=== PATIENT | male | born 1960 | race Asian ===

== ENCOUNTER 2019-05-28 22:54 | Emergency (ER) | payer OTHER ==
[~2019-05-28] VITALS: Ht 170.2 cm; Wt 71.7 kg
[2019-05-28 23:20] VITALS: Ht 170.2 cm; Wt 71.7 kg
[2019-05-29 01:44] VITALS: BP 116/60
== END 2019-05-29 01:45 | disposition home or self-care (01) ==
LOC: ED 22:54
DX: S46.911A Strain of unspecified muscle, fascia and tendon at shoulder and upper arm level, right arm, initial encounter (principal); E11.9 Type 2 diabetes mellitus without complications; X58.XXXA Exposure to other specified factors, initial encounter; Y93.89 Activity, other specified; Y92.89 Other specified places as the place of occurrence of the external cause; Y99.8 Other external cause status
CPT/HCPCS: J1885